=== PATIENT | male | born 1990 | race Caucasian/White ===

== ENCOUNTER 2016-11-13 16:17 | Emergency (ER) | payer BC, MEDICAID ==
[~2016-11-13 16:17] MED LIST: BACLOFEN10 MG PO; DEPAKENE250 MG/5 M PO; KLONOPIN 0.5MG0.5 MG PO; SEE INSTRUCTIONS IT; VICODIN 5/5001 UDTAB PO
[2016-11-13 16:23] VITALS: BP 132/77; TEMP 98
[2016-11-13 17:45] VITALS: PULSE 80
== END 2016-11-13 17:47 | disposition home or self-care (01) ==
LOC: COL.ER 16:17
DX: S60.211A Contusion of right wrist, initial encounter (principal); S60.221A Contusion of right hand, initial encounter; W24.0XXA Contact with lifting devices, not elsewhere classified, initial encounter; Y92.009 Unspecified place in unspecified non-institutional (private) residence as the place of occurrence of the external cause; G80.1 Spastic diplegic cerebral palsy

== ENCOUNTER → 2018-10-07 | Outpatient (CLI) | payer OTHER, MEDICAID | LOC: ZCOL.LAB 12:18 | DX: Z01.89 Encounter for other specified special examinations (principal) ==